=== PATIENT | female | born 1985 | race American Indian/Alaskan Native ===

== ENCOUNTER 2017-09-06 09:55 | Inpatient (IN) | payer OTHER ==
--- NOTE | 2017-09-06 10:39 | HP ---
Past Medical History - Primary Care Physician PCP:: Deann Lee - Admission History of Present Illness: 32 yo EDC 10/06/17 ega 35.5 weeks by dates EDC 10/09/17 EGA 35.2 by usg admitted due to dehydration pt with Rh negative with immunized Anti D possible hemolytic disorder pt came for 2nd steroid shot andEFM shows dehydraton with a few variables History Source: Patient Limitations to Obtaining History: No Limitations - Past Surgical History Past Surgical History: Yes: None Hx Myomectomy: No Hx Transabdominal Cerclage: No - Smoking History Smoking history: Never smoked - Alcohol/Substance Use Hx Alcohol Use: No History of Substance Use: reports: None - Social History Usual Living Arrangement: Yes: With Spouse History of Recent Travel: No Home Medications - Allergies Allergies/Adverse Reactions: Allergies Allergy/AdvReac Type Severity Reaction Status Date / Time No Known Allergies Allergy Verified 09/05/17 08:55 - Home Medications Home Medications: Ambulatory Orders Amoxicillin 250mg Capsule - 1 tab PO BID 09/01/17 Vit Calc,Iron,Folic [ Vitamins] 1 tab PO DAILY 09/01/17 Physical Exam - Maternity Constitutional: Yes: Well Nourished, No Distress Neck: Yes: WNL Cardiovascular: Yes: WNL Breast(s): Yes: WNL - Abdominal Exam/OB Number of Fetuses: Single Presentation: Vertex Contractions: No Category: II - Vaginal Exam/OB Amniotic Membrane Status: Intact Presentation: Vertex/Position - Physical Exam Musculoskeletal: Yes: WNL Extremities: Yes: WNL Edema: No Integumentary: Yes: WNL ...Motor Strength: WNL Psychiatric: Yes: WNL, Alert, Oriented Hemorrhage Risk Assessment - Risk Factors Risk Score: 0 Risk Level: Low Risk Problem List - Problems (1) Dehydration during Code(s): [id number] - (2) 35 weeks gestation of Code(s): Z3A.35 - 35 WEEKS GESTATION OF Assessment/Plan possible hemolytic diease of IUP at 35 week deehydration BPP 8/8 normal dopplers Plan admit for observation D5LR 2nd steroid shot
[2017-09-06] MEDS ORDERED: DEXTROSE 5%-LACTATED RINGERS 1,000 ML IV SCH (10:45)
[2017-09-06 11:15] LABS: BASO % 0.1 % (0-2.0); EOS % 0.1 % (0-4.5); HEMATOCRIT 31.6 % (32.4-45.2); HEMOGLOBIN 11.3 GM/dL (10.7-15.3); LYMPH % 21.4 % (8-40); MCH 33.6 pg (25.7-33.7); MCHC 35.9 g/dl (32.0-36.0); MEAN CELL VOLUME 93.5 fl (80-96); MONO % 6.4 % (3.8-10.2); PLATELET COUNT 173 K/MM3 (134-434); RBC 3.37 M/mm3 (3.60-5.2); RDW 13.2 % (11.6-15.6); WHITE BLOOD COUNT 8.7 K/mm3 (4.0-10.0)
[2017-09-06] MEDS ORDERED: BETAMET ACET/BETAMET NA PH 30 MG/5 ML VIAL IM ONE (11:15)
[2017-09-06 11:26] VITALS: BMI 15.3
[2017-09-06 11:36] LABS: INR 0.96 (0.82-1.09); PROTHROMBIN TIME (PATIENT) 10.8 SEC (9.7-13.0)
[2017-09-06 11:39] LABS: ACTIVATED PTT 20.1 SECONDS (26.9-34.4); ANION GAP 9 (8-16); BLOOD UREA NITROGEN 7 mg/dL (7-18); CALCIUM 8.3 mg/dL (8.5-10.1); CHLORIDE 106 mmol/L (98-107); CO2 25 mmol/L (21-32); GLUCOSE,RANDOM 191 mg/dL (74-106); POTASSIUM 3.7 mmol/L (3.5-5.1); SODIUM 140 mmol/L (136-145)
[2017-09-06 11:42] LABS: CREATININE 0.6 mg/dL (0.55-1.02)
[2017-09-06] MEDS ORDERED: LACTATED RINGERS SOLUTION 1,000 ML/1,000 ML INFUS.BAG IV SCH (13:45)
[2017-09-06] MEDS ORDERED: TUBERCULIN PPD 5 TU/0.1ML SYRINGE (IN PATIENT USE ONLY) ID ONE (14:30)
[2017-09-06 18:32] VITALS: BP 106/58; PULSE 85; TEMP 98.6
== END 2017-09-06 19:35 | disposition home or self-care (01) | DRG 566 ==
LOC: JDEL 09:55 → JLDR 10:30
PROVIDERS: ADMIT Obstetrics & Gynecology; ATTEND Obstetrics & Gynecology
DX: O26.893 Other specified pregnancy related conditions, third trimester (principal); E86.0 Dehydration; Z3A.35 35 weeks gestation of pregnancy
CPT/HCPCS: 36415; 80048; 82962; 85025; 85610; 85730; 86593; 86850; 86870; 86900; 86901; 86902; 96372

== ENCOUNTER 2017-09-08 16:25 | Inpatient (IN) | payer OTHER ==
[2017-09-08] MEDS ORDERED: DINOPROSTONE 10 MG VAGINAL SUPPOSITORY VG ONE (17:00)
[2017-09-08] MEDS ORDERED: PROMETHAZINE HCL 25 MG/1 ML VIAL IVPB ONE (17:00)
[2017-09-08] MEDS ORDERED: BUTORPHANOL TARTRATE 1 MG/ML VIAL IVPB ONE (17:00)
--- NOTE | 2017-09-08 17:11 | HP ---
Past Medical History - Admission Chief Complaint: 32 y/o with SIUP at 36 weeks here for IOL for elevated MCA dopplers. History of Present Illness: 32 y/o female with SIUP at 36 weeks. Pt with elevated anti - D antibodies at 31 weeks (1:128, and recently rechecked and is now 1:256) Has been followed by M and had elevated MCA dopplers today. Recommendation per MFM is for induction of labor/delivery. History Source: Patient, Medical Record Limitations to Obtaining History: No Limitations - Past Medical History Cardiovascular: No: AFIB, HTN, CA Pulmonary: No: Asthma Gastrointestinal: Yes: GERD Hepatobiliary: No: Hepatitis B, Hepatitis C Reproductive: No: Fibroids, PID ...: 3 ...Para: 2 ...Term: 2 Heme/Onc: No: Bleeding Disorder, Sickle Cell Disease Infectious Disease: No: HIV, MRSA, STD's Psych: No: Anxiety, Depression Rheumatology: No: Lupus, Rheumatoid Arthritis Endocrine: No: Diabetes Mellitus, Hyperthyroidism - Past Surgical History Past Surgical History: Yes: None Hx Myomectomy: No Hx Transabdominal Cerclage: No - Smoking History Smoking history: Never smoked Have you smoked in the past 12 months: No - Alcohol/Substance Use Hx Alcohol Use: No History of Substance Use: reports: None - Social History History of Recent Travel: No Home Medications - Allergies Allergies/Adverse Reactions: Allergies Allergy/AdvReac Type Severity Reaction Status Date / Time No Known Allergies Allergy Verified 09/08/17 17:56 - Home Medications Home Medications: Ambulatory Orders Vit Calc,Iron,Folic [ Vitamins] 1 tab PO DAILY 09/01/17 Ranitidine HCl [Zantac 75] 75 mg PO PRN 09/06/17 Review of Systems - Review of Systems Constitutional: reports: No Symptoms Eyes: reports: No Symptoms HENT: reports: No Symptoms Neck: reports: No Symptoms Cardiovascular: reports: No Symptoms Respiratory: reports: No Symptoms Gastrointestinal: reports: No Symptoms Genitourinary: reports: No Symptoms Breasts: reports: No Symptoms Reported Musculoskeletal: reports: No Symptoms Integumentary: reports: No Symptoms Neurological: reports: No Symptoms Endocrine: reports: No Symptoms Hematology/Lymphatic: reports: No Symptoms Physical Exam - Maternity Constitutional: Yes: Well Nourished, No Distress, Calm Eyes: Yes: Conjunctiva Clear, EOM Intact HENT: Yes: Atraumatic, Normocephalic Neck: Yes: WNL Breast(s): Yes: WNL - Abdominal Exam/OB Number of Fetuses: Single Presentation: Vertex Contractions: No Heart Rate (range): 150 Category: I - Vaginal Exam/OB Vaginal Bleediing: No Dilatation (cm): 0 Effacement (%): 0 Amniotic Membrane Status: Intact Presentation: Vertex/Position Station: -3 - Physical Exam Extremities: Yes: WNL Psychiatric: Yes: Alert, Oriented Hemorrhage Risk Assessment - Risk Factors Medium Risk Factors: Yes: None High Risk Factors: Yes: None Risk Score: 1 Risk Level: Medium Risk Problem List - Problems (1) Rh alloimmunization, maternal, antepartum Code(s): O36.0990 - MATERNAL CARE FOR OTH RHESUS ISOIMMUN, UNSP TRIMESTER, UNSP (2) delivery Code(s): O60.10X0 - LABOR W DELIVERY, UNSP TRIMESTER, UNSP Assessment/Plan 32 y/o with SIUP at 36 weeks here for IOL 2/2 elevated MCA dopplers and increased Anti - D titers, IOL recommended by MFM - IV fluids - cervidil induction, cervidil placed, re evaluate in 12 ours or sooner if needed - IV analgesia or epidural prn - GBS unknown, for antibiotics when in active labor
[2017-09-08 17:17] VITALS: BMI 28.5
[2017-09-08] MEDS ORDERED: AMPICILLIN - 2 GM in SODIUM CHLORIDE 100 ML IVPB ONE (17:30)
[2017-09-08] MEDS ORDERED: DEXTROSE 5%-LACTATED RINGERS 1,000 ML IV SCH (17:30)
[2017-09-08 18:07] LABS: BASO % 0.2 % (0-2.0); EOS % 0.6 % (0-4.5); HEMATOCRIT 32.3 % (32.4-45.2); HEMOGLOBIN 10.9 GM/dL (10.7-15.3); LYMPH % 30.2 % (8-40); MCH 30.8 pg (25.7-33.7); MCHC 33.9 g/dl (32.0-36.0); MEAN CELL VOLUME 90.8 fl (80-96); MEAN PLT VOLUME 8.9 fl (7.5-11.1); MONO % 8.8 % (3.8-10.2); NEUT % 60.2 % (42.8-82.8); PLATELET COUNT 194 K/MM3 (134-434); RBC 3.56 M/mm3 (3.60-5.2); RDW 13.2 % (11.6-15.6); WHITE BLOOD COUNT 7.3 K/mm3 (4.0-10.0)
[2017-09-08 18:37] LABS: ANION GAP 7 (8-16); BLOOD UREA NITROGEN 11 mg/dL (7-18); CALCIUM 7.9 mg/dL (8.5-10.1); CHLORIDE 106 mmol/L (98-107); CO2 26 mmol/L (21-32); GLUCOSE,RANDOM 144 mg/dL (74-106); POTASSIUM 3.7 mmol/L (3.5-5.1); SODIUM 139 mmol/L (136-145)
[2017-09-08 18:40] LABS: INR 0.89 (0.82-1.09); PROTHROMBIN TIME (PATIENT) 10.1 SEC (9.7-13.0)
[2017-09-08 18:42] LABS: ACTIVATED PTT 20.5 SECONDS (26.9-34.4)
[2017-09-08] MEDS ORDERED: AMPICILLIN - 1 GM in SODIUM CHLORIDE 100 ML IVPB SCH (21:30)
[2017-09-08] MEDS ORDERED: DEXTROSE 5%-LACTATED RINGERS 1,000 ML IV ONE (22:00)
[2017-09-08] MEDS: DEXTROSE 5%-LACTATED RINGERS 1,000 ML IV SCH (22:30)
[2017-09-09] MEDS ORDERED: AMPICILLIN SODIUM 2 GM VIAL ONE (00:47)
[2017-09-09] MEDS ORDERED: CITRIC ACID/SODIUM CITRATE 30 ML UNIT-DOSE CUP PO ONE (02:00)
--- NOTE | 2017-09-09 02:30 | PN ---
Ante-Partal Exam - Subjective Subjective: Called in to evaluate patient for recurrent variable decelerations. Patient having regular contractions, cervidil removed approx 11pm and recurrent variable decelerations present on tracing. Cervix was still closed upon exam. Vital Signs: Vital Signs Temperature 98.1 F 09/09/17 00:00 Pulse Rate 72 09/09/17 00:00 Respiratory Rate 20 09/09/17 00:00 Blood Pressure 109/71 09/09/17 00:00 O2 Sat by Pulse Oximetry (%) Bleeding: No Headache: No Visual changes: No Right upper quadrant pain: No - Contractions Contractions: Yes Regularity: Irregular Intensity: Moderate Monitor Mode: External - Exam during Labor Heart Rate: 150 Variability: Moderate Category: II Monitor Accelerations: Present Monitor Decelerations: Variable Exam: Vaginal Dilatation (cm): 0 Amniotic Membrane Status: Intact Presentation: Vertex - Assessment/Plan Assessment/Plan: 32 y/o with SIUP at 36.1 weeks gestation, IOL for elevated MCA dopplers and increased anti - D antibodies, concerned for alloimunization/hemolytic disease of . -FHTS cat 2 and remote from delivery - discussed options/plan of care with patient. Plan as pt is still remote from delivery will be for primary delivery. Patient and aware of plan and agree. - Anesthesia and nursery aware
[2017-09-09] MEDS ORDERED: morphine SULFATE/Preservative Free 0.5 MG/ML (1cc Syringe) ONE (02:31)
[2017-09-09] MEDS ORDERED: BUPIVACAINE 0.75% IN DEXTROSE/PF 2ML AMPULE NR ONE (02:33)
[2017-09-09] MEDS ORDERED: IBUPROFEN 800 MG/8 ML IJ IVPB PRN (02:34)
[2017-09-09] MEDS ORDERED: oxyCODONE HCL 5 MG TABLET PO PRN ×2 (02:34)
[2017-09-09] MEDS ORDERED: METHYLERGONOVINE MALEATE 0.2 MG/1 ML AMP IM PRN (02:34)
[2017-09-09] MEDS ORDERED: morphine SULFATE/Preservative Free 0.5 MG/ML (1cc Syringe) SPIN ONE (02:43)
[2017-09-09] MEDS ORDERED: ceFAZolin SODIUM 1 GM VIAL ONE (02:45)
[2017-09-09] MEDS ORDERED: PHENYLEPHRINE HCL 10 MG/1 ML SINGLE DOSE VIAL ONE (02:48)
[2017-09-09] MEDS ORDERED: OXYTOCIN 10 UNITS/ML VIAL ONE (02:54)
[2017-09-09] MEDS ORDERED: ONDANSETRON 4 MG/2 ML VIAL IVPUSH PRN (02:58)
[2017-09-09 03:24] LABS: ARTERIAL BLD GAS O2 SATURATION 9.6 % (90-98.9); ARTERIAL BLOOD GAS BASE EXCESS -1.7 meq/l (-2-2); ARTERIAL BLOOD GAS PO2 10.5 mmHg (80-100)
[2017-09-09 03:30] LABS: ARTERIAL BLOOD GAS pH 7.23 (7.35-7.45)
[2017-09-09 03:31] LABS: ARTERIAL BLOOD GAS PCO2 62.4 mmHg (35-45)
[2017-09-09 03:32] LABS: VENOUS PH 7.32 (7.32-7.42)
[2017-09-09 03:33] LABS: VENOUS PO2 21.9 mmHg (28-48)
[2017-09-09] MEDS: OXYTOCIN 20 UNITS in 0.9% NS 20 UNIT/1,000 ML INFUS.BAG IV SCH (04:30)
[2017-09-09] MEDS ORDERED: OXYTOCIN 20 UNITS in 0.9% NS 20 UNIT/1,000 ML INFUS.BAG IV ONE (04:57)
[2017-09-09] MEDS: RANITIDINE HCL 150 MG TABLET (FP) PO SCH ×2 (07:25→11:24)
[2017-09-09] MEDS: PRENATAL VITAMINS W/ FOLIC ACID TABLET (FP) PO SCH (10:00)
--- NOTE | 2017-09-09 10:21 | OP ---
Operative Note - Note: Operative Date: 09/09/17 Pre-Operative Diagnosis: SIUP at 36 weeks, elevated MCA dopplers, anti-D antibody positive mother, recurrent variable decelerations, remote from delivery Operation: Primary LTCS Findings: normal b/l tubes/ovaries Post-Operative Diagnosis: Same as Pre-op Surgeon: Marimar Hernandez Public Relations Assistant: Chapincito Oneal Anesthesiologist/YOUTH SPECIALIST: Jordan Yost Anesthesia: Spinal Specimens Removed: placenta Estimated Blood Loss (mls): 600 Operative Report Dictated: Yes
--- NOTE | 2017-09-09 10:22 | PN ---
Delivery - Delivery Section: Primary, Low Flap Transverse Type of Anesthesia: Spinal Episiotomy/Laceration: None EBL (cc): 600 Delivery, Single - Stages of Labor Date 1st Stage Initiatied: 09/09/17 Time 1st Stage Initiated: 19:00 Date of Delivery: 09/09/17 Time of Delivery: 02:54 Time Placenta Delivered: 02:55 - Condition of Cold Food Packer/Lead Operator Present: Yes Name: Citlaly Chen Infant Gender: Male Weight: 5 lb 1 oz Position: OA Total Hours ROM (Hrs/Mins): 3mins. - 1 Minute Total Score: 9 5 Minutes Total Score: 9 - Feeding Plan Initial Plan: Elected not to breastfeed exclusively throughout hospitalization
[2017-09-10] MEDS: DEXTROSE 5%-LACTATED RINGERS 1,000 ML IV SCH (00:08)
[2017-09-10] MEDS ORDERED: BISACODYL 10 MG SUPP.RECT RC PRN (02:34)
[2017-09-10] MEDS: SIMETHICONE 80 MG TAB.CHEW (FP) PO PRN ×4 (02:49→22:57)
[2017-09-10] MEDS: IBUPROFEN 600 MG TABLET (FP) PO PRN ×4 (02:49→22:58)
[2017-09-10] MEDS: ACETAMINOPHEN 325 MG TABLET (FP) PO PRN ×4 (02:52→22:58)
[2017-09-10] MEDS: OXYTOCIN 20 UNITS in 0.9% NS 20 UNIT/1,000 ML INFUS.BAG IV SCH (02:53)
[2017-09-10 08:06] LABS: BASO % 0.3 % (0-2.0); HEMATOCRIT 33.4 % (32.4-45.2); HEMOGLOBIN 11.3 GM/dL (10.7-15.3); LYMPH % 20.3 % (8-40); MCH 30.6 pg (25.7-33.7); MCHC 33.8 g/dl (32.0-36.0); MEAN CELL VOLUME 90.6 fl (80-96); MEAN PLT VOLUME 8.6 fl (7.5-11.1); MONO % 6.7 % (3.8-10.2); NEUT % 71.7 % (42.8-82.8); PLATELET COUNT 206 K/MM3 (134-434); RBC 3.69 M/mm3 (3.60-5.2); RDW 12.8 % (11.6-15.6); WHITE BLOOD COUNT 12.6 K/mm3 (4.0-10.0)
--- NOTE | 2017-09-10 08:12 | OP ---
DATE OF OPERATION: 09/09/2017 PREOPERATIVE DIAGNOSES: Single intrauterine at 36 weeks' gestation, elevated anti-D antibody titers, concern for hemolytic disease of the fetus and recurrent variable decelerations remote from delivery. POSTOPERATIVE DIAGNOSES: Single intrauterine at 36 weeks' gestation, elevated anti-D antibody titers, concern for hemolytic disease of the fetus and recurrent variable decelerations remote from delivery. PROCEDURE: Primary low transverse delivery. SURGEON: Marimar Hernandez DO SAP BODS DEVELOPER: MAX Louis ESTIMATED BLOOD LOSS: 600 mL COMPLICATIONS: None. SPECIMENS REMOVED: Included placenta. COUNTS: Sponge, needle, and instrument count correct at the end of the case. DISPOSITION: Stable to PACU. BRIEF HISTORY AND PROCEDURE: Patient is a 32-year-old G3, P2 female who has been followed throughout her in the third trimester for elevated anti-D antibody titers. There was concern for progression to hemolytic disease of the , and on the morning of September 08, 2017, the maternal medicine doctor who was following with the patient recommended induction of labor at 36 weeks, which was on that date of September 08, 2017. Patient was admitted to the hospital, and a Cervidil induction was administered. Overnight, the heart rate tracing began to have recurrent variable decelerations, and the patient's cervix was found to be closed. Secondary to the condition of the fetus and the patient being remote from delivery, plan was made for a delivery at this time. Patient agreed and consents were signed. The patient was then taken back to the operating room, and she was given spinal anesthesia by Dr. Yost. She was placed in the dorsal supine position on the operating room table. A hard timeout was performed. She was prepped and draped in the usual sterile fashion. A Pfannenstiel skin incision was created in the skin with a scalpel and carried to the underlying layer of rectus fascia with the Bovie. The fascia was incised on either side of midline with the Bovie, and the fascial incision was carried in a superolateral direction with the Bovie. The fascia was tented upward and dissected off the underlying layer of rectus muscle with the Bovie. The musculature was identified. The midline was identified, and the muscles were laterally. The peritoneum was entered bluntly, and a bladder blade was inserted to allow for adequate room for delivery. A transverse incision on the lower uterine segment was completed, which was extended in the superolateral direction. The infant delivered with ease. The anterior and posterior shoulders delivered along with the remainder of the . The cord was clamped twice and cut in between after 1 minute of delayed cord clamping. The infant was then taken to the warmer to be assessed by the neonatology staff who was present for the entire delivery. The placenta was delivered intact with a 3-vessel cord. The uterus was exteriorized from the abdomen, inspected and cleared of all amniotic membrane and debris with a dry lap sponge. The hysterotomy was reapproximated in double-layer closure using 1 Vicryl in a running locked fashion and a second layer using 0 Biosyn suture in a running locked fashion. Excellent hemostasis was achieved. The posterior cul-de-sac was suctioned. The uterus was placed back in the abdomen. Bilateral gutters were inspected and cleared of all amniotic membrane, debris, and blood clot. Bilateral tubes and ovaries were noted to be within normal limits. The hysterotomy was again inspected and noted to be hemostatic. The peritoneum was reapproximated using 2-0 chromic in a running fashion. The musculature was reapproximated using 2-0 chromic in a running fashion. The fascia was then reapproximated using 1 Vicryl in a running fashion. The subcutaneous tissue was irrigated, and any bleeding was controlled with the Bovie device. The subcutaneous tissue was reapproximated using 1 Vicryl in a running fashion, and the skin was reapproximated using 3-0 Vicryl suture in a subcuticular fashion, and Steri-Strips were applied. Sponge, needle, and instrument count was reported to be correct. The patient tolerated the procedure well, recovering in stable condition in the unit at the time of this dictation. MARIMAR HERNANDEZ DO /[id number]
--- NOTE | 2017-09-10 09:05 | PN ---
Post Progress Note - Subjective Subjective: Pt seen/evaluated. Voiding, tolerating clears. Ambulating but with difficulty 2/2 pain. Otherwise no complaints. Type of Delivery: Primary C/S Vital Signs: Vital Signs Temperature 98.1 F 09/10/17 08:12 Pulse Rate 70 09/10/17 08:12 Respiratory Rate 18 09/10/17 08:12 Blood Pressure 108/50 09/10/17 08:12 O2 Sat by Pulse Oximetry (%) 98 09/09/17 05:46 Uterus: Yes: Fundus Firm Incision: Yes: Dressing dry and intact Abdomen/GI: Yes: Abdomen soft, Tender (appropriate post surgical tenderness) Lochia, amount: Small Extremities: Yes: Calves non-tender. No: Edema Perineum: Yes: Intact Activity: Ambulating - Labs Labs: CBC WBC 12.6 K/mm3 (4.0-10.0) H D 09/10/17 07:14 RBC 3.69 M/mm3 (3.60-5.2) 09/10/17 07:14 Hgb 11.3 GM/dL (10.7-15.3) 09/10/17 07:14 Hct 33.4 % (32.4-45.2) 09/10/17 07:14 MCV 90.6 fl (80-96) 09/10/17 07:14 MCH 30.6 pg (25.7-33.7) 09/10/17 07:14 MCHC 33.8 g/dl (32.0-36.0) 09/10/17 07:14 RDW 12.8 % (11.6-15.6) 09/10/17 07:14 Plt Count 206 K/MM3 (134-434) 09/10/17 07:14 MPV 8.6 fl (7.5-11.1) 09/10/17 07:14 Neutrophils % 71.7 % (42.8-82.8) 09/10/17 07:14 Lymphocytes % 20.3 % (8-40) D 09/10/17 07:14 Monocytes % 6.7 % (3.8-10.2) 09/10/17 07:14 Eosinophils % 1.0 % (0-4.5) 09/10/17 07:14 Basophils % 0.3 % (0-2.0) 09/10/17 07:14 Nucleated RBC % 0 % (0-0) 09/10/17 07:14 Problem List - Problems (1) Rh alloimmunization, maternal, antepartum Code(s): O36.0990 - MATERNAL CARE FOR OTH RHESUS ISOIMMUN, UNSP TRIMESTER, UNSP (2) delivery Code(s): O60.10X0 - LABOR W DELIVERY, UNSP TRIMESTER, UNSP (3) delivery delivered Code(s): O82 - ENCOUNTER FOR DELIVERY WITHOUT INDICATION Assessment/Plan 32 y/o POD#1 s/p primary delivery - AFVSS - Hgb 11.1 - d/c schaffer, encourage ambulation - advance diet as tolerated - PO pain meds - routine post care
[2017-09-10] MEDS: RANITIDINE HCL 150 MG TABLET (FP) PO SCH (09:44)
[2017-09-10] MEDS: PRENATAL VITAMINS W/ FOLIC ACID TABLET (FP) PO SCH (09:44)
--- NOTE | 2017-09-10 11:52 | PN ---
Progress Note (short form) - Note Progress Note: Anesthesiology Post-op 32 y.o. POD#1 s/p C/S under spinal anesthesia. Pt. is sitting up, in NAD. She denies pain, n/v or h/a. She only c/o itching. She is able to ambulate. VSS. 32 y.o. with stable post-operative course s/p C/S. Benadryl ordered for itching. Continue post-op management as per primary team.
--- NOTE | 2017-09-11 07:48 | PN ---
Post Progress Note - Subjective Subjective: Pt seen/evaluated and doing well. Having some incisional pain otherwise no complaints. VB minimal. Walking, voiding and passing flatus. Tolerating regular diet. Type of Delivery: Primary C/S Vital Signs: Vital Signs Temperature 98.2 F 09/11/17 07:00 Pulse Rate 76 09/11/17 07:00 Respiratory Rate 20 09/11/17 07:00 Blood Pressure 119/76 09/11/17 07:00 O2 Sat by Pulse Oximetry (%) 98 09/09/17 05:46 Breast Exam: Yes: Soft Uterus: Yes: Fundus Firm Incision: Yes: Sutures intact Abdomen/GI: Yes: Abdomen soft, Tender (appropriate post op tenderness) Lochia: Yes: Rubra Lochia, amount: Small Extremities: Yes: Calves non-tender, Edema (trace LE edema b/l) Activity: Ambulating - Labs Labs: CBC WBC 12.6 K/mm3 (4.0-10.0) H D 09/10/17 07:14 RBC 3.69 M/mm3 (3.60-5.2) 09/10/17 07:14 Hgb 11.3 GM/dL (10.7-15.3) 09/10/17 07:14 Hct 33.4 % (32.4-45.2) 09/10/17 07:14 MCV 90.6 fl (80-96) 09/10/17 07:14 MCH 30.6 pg (25.7-33.7) 09/10/17 07:14 MCHC 33.8 g/dl (32.0-36.0) 09/10/17 07:14 RDW 12.8 % (11.6-15.6) 09/10/17 07:14 Plt Count 206 K/MM3 (134-434) 09/10/17 07:14 MPV 8.6 fl (7.5-11.1) 09/10/17 07:14 Neutrophils % 71.7 % (42.8-82.8) 09/10/17 07:14 Lymphocytes % 20.3 % (8-40) D 09/10/17 07:14 Monocytes % 6.7 % (3.8-10.2) 09/10/17 07:14 Eosinophils % 1.0 % (0-4.5) 09/10/17 07:14 Basophils % 0.3 % (0-2.0) 09/10/17 07:14 Nucleated RBC % 0 % (0-0) 09/10/17 07:14 Problem List - Problems (1) Rh alloimmunization, maternal, antepartum Code(s): O36.0990 - MATERNAL CARE FOR OTH RHESUS ISOIMMUN, UNSP TRIMESTER, UNSP (2) delivery Code(s): O60.10X0 - LABOR W DELIVERY, UNSP TRIMESTER, UNSP (3) delivery delivered Code(s): O82 - ENCOUNTER FOR DELIVERY WITHOUT INDICATION Assessment/Plan 32 y/o POD#2 s/p primary delivery - AFVSS - Hgb 11.1 - regular - PO pain meds - routine post care - potential discharge home later today if pt feeling well
--- NOTE | 2017-09-11 07:52 | DS ---
Physical Exam-HVAC TECHNICIAN RESIDENTIAL Vital Signs: Vital Signs Temperature 98.2 F 09/11/17 07:00 Pulse Rate 76 09/11/17 07:00 Respiratory Rate 20 09/11/17 07:00 Blood Pressure 119/76 09/11/17 07:00 O2 Sat by Pulse Oximetry (%) 98 09/09/17 05:46 Labs: CBC, BMP 09/10/17 07:14 09/08/17 17:25 Delivery - Delivery Section: Primary, Low Flap Transverse Type of Anesthesia: Spinal Episiotomy/Laceration: None EBL (cc): 600 Delivery, Single - Stages of Labor Date 1st Stage Initiatied: 09/09/17 Time 1st Stage Initiated: 19:00 Date of Delivery: 09/09/17 Time of Delivery: 02:54 Date Placenta Delivered: 09/09/17 Time Placenta Delivered: 02:55 Placenta: Yes: Manual Removal - Condition of Infant Ball Mill Mixer/Assembler Trim Present: Yes Name: Citlaly Chen Gender: Male Weight: 5 lb 1 oz Position: OA Total Hours ROM (Hrs/Mins): 3mins. - 1 Minute Total Score: 9 5 Minutes Total Score: 9 - [place] Feeding Plan Initial Plan: Elected not to breastfeed exclusively throughout hospitalization Discharge Summary Reason For Visit: CERVIDIL INDUCTION Current Active Problems delivery delivered (Acute) delivery (Acute) Rh alloimmunization, maternal, antepartum (Acute) Procedures: Principal: Primary delivery Hospital Course: Pt Admitted to [facility] for labor induction on 09/08/17. Cervidil placed on that date. Overnight 09/08/17, the heart rate tracing became category 2 and patient was remote from delivery at which point a delivery was completed. An uncomplicated delivery took place (see operative note). The patient recovered well and was meeting all post op milestones by post op day 2. The patient was discharged home in stable condition on post op day 3. Condition: Stable - Instructions Diet, Activity, Other Instructions: Physical activity Resume your normal everyday activity as tolerated no heavy lifting or exercise until seen by your surgeon. You may walk unlimited amounts and climb stairs. You may resume driving the car when you feel safe and comfortable behind the wheel. No sexual activity as instructed for 6 weeks. Wound care If there are tapes on the skin leave them in place. They will peel off in the next 7 to 10 days. Do Not Peel them off. You may shower the day after surgery. If there are tapes present on the skin, you may shower over them. Diet There are no dietary restrictions. Eat healthy, high-fiber foods. Drink 6 to 8 glasses of liquid each day. This will assist in keeping your bowels regular. Pain management You may take Tylenol or Ibuprofen (for example, Motrin, Advil etc.) as needed for mild pain. If any prescription pain medication is sent to your pharmacy please take for severe pain only. Call MD for any of the following: Severe pain not relieved by medication Fever of 101 or higher Excessive bleeding or drainage on dressing Inability to urinate Call Dr. Hernandez and make appt. to be seen in one week. Referrals: Marimar Hernandez DO [Staff Physician] - Disposition: HOME - Home Medications Comprehensive Discharge Medication List: Ambulatory Orders Vit Calc,Iron,Folic [ Vitamins] 1 tab PO DAILY 09/01/17 Ranitidine HCl [Zantac 75] 75 mg PO PRN 09/06/17
[2017-09-11] MEDS: IBUPROFEN 600 MG TABLET (FP) PO PRN ×3 (08:41→23:47)
[2017-09-11] MEDS: ACETAMINOPHEN 325 MG TABLET (FP) PO PRN ×3 (08:42→23:48)
[2017-09-11] MEDS: SIMETHICONE 80 MG TAB.CHEW (FP) PO PRN ×3 (08:42→23:47)
[2017-09-11] MEDS: PRENATAL VITAMINS W/ FOLIC ACID TABLET (FP) PO SCH (09:24)
[2017-09-11] MEDS: RANITIDINE HCL 150 MG TABLET (FP) PO SCH (09:25)
[2017-09-11] MEDS ORDERED: DIPHTH,PERTUSS(ACELL),TET 0.5 ML DISP.SYRIN IM ONE (10:00)
[2017-09-12 07:26] LABS: BASO % 0.3 % (0-2.0); EOS % 6.4 % (0-4.5); HEMATOCRIT 30.9 % (32.4-45.2); HEMOGLOBIN 10.7 GM/dL (10.7-15.3); LYMPH % 35.6 % (8-40); MCH 31.5 pg (25.7-33.7); MCHC 34.7 g/dl (32.0-36.0); MEAN CELL VOLUME 90.7 fl (80-96); MEAN PLT VOLUME 8.5 fl (7.5-11.1); MONO % 8.1 % (3.8-10.2); NEUT % 49.6 % (42.8-82.8); PLATELET COUNT 261 K/MM3 (134-434); RBC 3.41 M/mm3 (3.60-5.2)
[2017-09-12 07:57] VITALS: BP 112/62; PULSE 64; TEMP 98.6
[2017-09-12] MEDS: PRENATAL VITAMINS W/ FOLIC ACID TABLET (FP) PO SCH (09:05)
[2017-09-12] MEDS: RANITIDINE HCL 150 MG TABLET (FP) PO SCH (09:05)
--- NOTE | 2017-09-16 09:29 | PATH ---
Surgical Pathology Report Patient Name: MARCIO ARROYO [facility]. Rec. #: [id number] /Age/Gender: 1985 (Age: 32) / F Account: [id number] Location: [facility] OBS/PROPOSAL MANAGER Taken: 09/08/2017 Received: 09/09/2017 Reported: 09/16/2017 Physicians: Marimar Hernandez M.D. Specimen(s) Received PLACENTA Clinical History , 35.5 weeks gestation, Rh-, Rh sensitization History of hyperlipidemia Final Diagnosis PLACENTA: THIRD TRIMESTER PLACENTA WITH TWO FOCUS OF INTRAPARENCHYMAL HEMORRHAGE, 1.3CM IN GREATEST DIMENSION. TRIVASCULAR CORD. MEMBRANES, NO DIAGNOSTIC ABNORMALITIES. Electronically Signed Leif Mejia M.D. Gross Description The specimen is received fresh labeled placenta and is a 550 gram, 17.5 x 13.5 x 4.2 cm. placenta with attached membranes and umbilical cord. The attached membranes are ozuna, translucent with focal opacities and insert marginally. The umbilical cord measures 25 cm. in length and averages zero point cm. in diameter. The cord inserts eccentrically, 4.5 cm. to the nearest margin. No true knots or strictures are identified. Cut surface of the umbilical cord reveals 3 vessels. The surface is haque blue with moderate fibrin deposition and appropriate caliber vessels. The maternal surface is red-brown with focal defects. Sectioning reveals 2 hemorrhagic intraparenchymal lesions averaging 1.3 cm in greatest dimension. The remaining placental parenchyma is red-brown and spongy. Wharf Tender sections are submitted in 5 cassettes as follows: 1-membrane roll and umbilical cord; 2-3-lesions; 4-5-full thickness sections of placenta. 09/14/2017 [facility]09/14/2017
== END 2017-09-12 11:10 | disposition home or self-care (01) | DRG 540 ==
LOC: JLDR 16:25 → J3W 09-09 05:30
PROVIDERS: ADMIT Obstetrics & Gynecology; ATTEND Obstetrics & Gynecology
PROC: 10D00Z1 Extraction of Products of Conception, Low, Open Approach (ICD-10-PCS; principal; 2017-09-09)
DX: O36.0130 Maternal care for anti-D [Rh] antibodies, third trimester, not applicable or unspecified (principal); O60.14X0 Preterm labor third trimester with preterm delivery third trimester, not applicable or unspecified; O76 Abnormality in fetal heart rate and rhythm complicating labor and delivery; O26.893 Other specified pregnancy related conditions, third trimester; K21.9 Gastro-esophageal reflux disease without esophagitis; Z3A.36 36 weeks gestation of pregnancy; Z37.0 Single live birth
CPT/HCPCS: 36415; 36600; 80048; 82803; 85025; 85461; 85610; 85730; 86593; 86850; 86870; 86886; 86900; 86901; 86902; 87389; 88307-TC; 90715